=== PATIENT | male | born 1940 | race Caucasian/White ===

== ENCOUNTER → 2017-08-26 | Outpatient (CLI) | payer OTHER | LOC: BMCIMAGING 14:46 | PROVIDERS: ATTEND Internal Medicine | DX: R05 Cough (principal); M48.10 Ankylosing hyperostosis [Forestier], site unspecified ==

== ENCOUNTER → 2017-08-27 | Outpatient (CLI) | payer OTHER | LOC: BMCIMAGING 14:36 | PROVIDERS: ATTEND Internal Medicine | DX: Z13.83 Encounter for screening for respiratory disorder NEC (principal) ==

== ENCOUNTER 2017-09-24 14:42 | Inpatient (IN) | payer OTHER ==
--- NOTE | 2017-09-24 15:03 | EDPHY ---
H & P Stated Complaint: CP, SOB, weak, lightheaded, elevated BP Time Seen by Provider: 09/24/17 15:03 - Personal History Current Tetanus/Diphtheria Vaccine: Yes Current Tetanus Diphtheria and Acellular Pertussis (TDAP): Yes - Medical/Surgical History Hx Asthma: No Hx Chronic Respiratory Disease: No Hx Diabetes: No Hx Cardiac Disease: No Hx Renal Disease: Yes Hx Cirrhosis: No Hx Alcoholism: No Hx HIV/AIDS: No Hx Splenectomy or Spleen Trauma: No Other PMH: left kidney nephrectomy; wears oxygen at night, CVA, HTN, BPH, kidney stones, numerous surgeries, colon CA - Social History Smoking Status: Former smoker Constitutional: Initial Vital Signs Temperature (C) 36.6 C 09/24/17 14:44 Heart Rate 88 09/24/17 14:44 Respiratory Rate 16 09/24/17 14:44 Blood Pressure 154/95 H 09/24/17 14:44 O2 Sat (%) 95 09/24/17 14:44 O2 Delivery Mode Room Air Allergies/Adverse Reactions: iodine [Iodine] Allergy (Severe, Verified 03/28/10 01:32) Anaphylaxis IVP dye Allergy (Uncoded 01/20/14 19:12) Home Medications: Medication Instructions Recorded Docusate Sodium [Colace 100 MG (*)] 100 mg PO DAILY 03/27/10 Allopurinol [Allopurinol 100 MG 100 mg PO DAILY 01/20/14 (*)] Atorvastatin Calcium [Lipitor 80 80 mg PO DAILY 01/20/14 mg] Doxazosin Mesylate [Cardura] 2 mg PO DAILY 01/20/14 Dutasteride [Avodart 0.5 MG (*)] 0.5 mg PO DAILY 01/20/14 Latanoprost 0.005% [Xalatan 0.005% 1 drops LEFTEYE HS 01/20/14 (*)] Losartan Potassium [Cozaar 25 mg 25 mg PO DAILY 01/20/14 (*)] Tamsulosin HCl [Flomax 0.4 MG (*)] 0.4 mg PO DAILY 01/20/14 Eliquis 09/24/17 Medical Decision Making - Diagnostics Imaging Results: Imaging Impressions Chest X-Ray 09/24/17 15:16 Impression: Chronic bronchitis. No acute change. Imaging: I viewed and interpreted images myself ED Course/Re-evaluation: CHIEF COMPLAINT: Chest pain, dizziness, fatigued HISTORY OF PRESENT ILLNESS: The patient is an anticoagulated (Eliquis) 76 y/o male with a history of a CVA, hypertension, and colon cancer complaining of chest pain, dizziness, and fatigue. While living in the [facility] this winter the patient had low blood pressure. He returned to [place] 1 month ago and subsequently developed more fatigue and high blood pressure. He also started to develop shortness of breath and chest pressure while exerting himself. Around this time he was also diagnosed with bronchitis. Last night his symptoms worsened and he had a blood pressure of 195/111. Due to these symptoms he was advised to present to the emergency department. When he was diagnosed with a CVA, there was an unknown etiology and his carotid arteries were clear. Last year he did travel to [place] and had some respiratory symptoms. Denies headache, numbness, paresthesias, abdominal pain, urinary or bowel complaints, fever. REVIEW OF SYSTEMS: A 10 point review of systems was performed and is negative with the exception of the elements mentioned in the history of present illness. PHYSICAL EXAM: HR, BP, O2 Sat, RR. Temp noted General Appearance: Obese, alert, well hydrated, appropriate, and non-toxic appearing. Head: Atraumatic without scalp tenderness or obvious injury Eyes: Pupils equal, round, reactive to light and accommodation, EOMI, no trauma , no injection. Ears: Clear bilaterally, no perforation, normal landmarks Nose: Atraumatic, no rhinorrhea, clear. Throat: There is no erythema or exudates, no lesions, normal tonsils, mucus membranes moist. Neck: Supple, 2+ carotid upstroke, nontender, no lymphadenopathy. Respiratory: No retractions, no distress, no wheezes, and no accessory muscle use. Lungs are clear to auscultation bilaterally. Cardiovascular: Regular rate and rhythm, no murmurs, rubs, or gallops. Bilateral carotid, radial, dorsalis pedis, and posterior tibial pulses intact. Good capillary refill all extremities. Gastrointestinal: Abdomen is soft, nontender, non-distended, no masses, no rebound, no guarding, no peritoneal signs. Musculoskeletal: Normal active ROM of all extremities, atraumatic. Neurological: Alert, appropriate, and interactive. Non-focal neuro. Skin: No rashes, good turgor, no nodules on palpation. Past medical history: CVA, hypertension, kidney stones, colon cancer, wears oxygen at night, Past surgical history: Left kidney nephrectomy, numerous surgeries Family history: Denies Social history: at bedside, lives in [place] and the [facility], retired, followed by Dr. Rajan DIAGNOSTICS/PROCEDURES/CRITICAL CARE TIME: EKG: The 12 lead EKG was interpreted by myself as sinus rhythm with a rate of 80 , Q waves present inferiorly, probable old inferior infarct. See hard copy and/ or "tracemaster" electronic copy for interpretation. Chest x-ray: No acute findings. DIFFERENTIAL DIAGNOSIS: The differential diagnosis for the patient's chest pain included but was not limited to myocardial ischemia, pulmonary embolus, chest wall pain, pleural inflammation, and pulmonary infectious causes. MEDICAL DECISION MAKING: The patient is an anticoagulated (Eliquis) 76 y/o male with a history of a CVA, hypertension, and colon cancer presenting with exertional chest pain, dizziness , and fatigue. His physical exam is normal. Labs, EKG, chest x-ray ordered; 324mg PO Aspirin given. 1509: I reviewed patient's EKG as sinus rhythm with a rate of 80, Q waves present inferiorly. 1536: Patient's troponin is 0.02 1550: Patient's labs and imaging findings are normal. He will need to be admitted based on his history of symptoms. 1554: Reassessed patient and discussed laboratory findings. He is still having intermittent episodes of chest pain while lying down. He is comfortable with plan for admission. 1555: Consulted with Dr. Quinn, composition floor layer, regarding this patient. Dr. Quinn and Dr. Omalley agree to follow this patient during his admission. 1558: Consulted with hospitalist service, Dr. Morel agrees to accept this patient for further observation. 1630: Patient has no acute findings on his chest x-ray. - Data Points Laboratory Results: Laboratory Results 09/24/17 15:20 09/24/17 15:20 09/24/17 09/24/17 09/24/17 15:26 15:20 15:20 WBC RBC Hgb Hct MCV MCH MCHC RDW Plt Count MPV Neut % (Auto) Lymph % (Auto) [place] % (Auto) Eos % (Auto) Baso % (Auto) Nucleat RBC Rel Count Absolute Neuts (auto) Absolute Lymphs (auto) Absolute Monos (auto) Absolute Eos (auto) Absolute Basos (auto) Absolute Nucleated RBC Immature Gran % Immature Gran # D-Dimer 0.32 ug/mLFEU ug/mLFEU (0.00-0.50) Sodium 143 mEq/L mEq/L (135-145) Potassium 4.3 mEq/L mEq/L (3.3-5.0) Chloride 105 mEq/L mEq/L (97-110) Carbon Dioxide 26 mEq/l mEq/l (22-31) Anion Gap 12 mEq/L mEq/L (8-16) BUN 23 mg/dL mg/dL (7-23) Creatinine 1.5 mg/dL H mg/dL (0.7-1.3) Estimated GFR 46 Glucose 117 mg/dL H mg/dL (70-100) Calcium 9.7 mg/dL mg/dL (8.5-10.4) Total Bilirubin 0.8 mg/dL mg/dL (0.1-1.4) Conjugated Bilirubin 0.4 mg/dL mg/dL (0.0-0.5) Unconjugated Bilirubin 0.4 mg/dL mg/dL (0.0-1.1) AST 22 IU/L IU/L (17-59) ALT 35 IU/L IU/L (21-72) Alkaline Phosphatase 97 IU/L IU/L (38-126) POC Troponin I 0.02 ng/mL ng/mL (0.00-0.08) Troponin I 0.017 ng/mL ng/mL (0.000-0.034) Total Protein 6.4 g/dL g/dL (6.3-8.2) Albumin 3.6 g/dL g/dL (3.5-5.0) 09/24/17 15:20 WBC 7.53 10^3/uL 10^3/uL (3.80-9.50) RBC 5.49 10^6/uL 10^6/uL (4.40-6.38) Hgb 16.2 g/dL g/dL (13.7-17.5) Hct 48.4 % % (40.0-51.0) MCV 88.2 fL fL (81.5-99.8) MCH 29.5 pg pg (27.9-34.1) MCHC 33.5 g/dL g/dL (32.4-36.7) RDW 14.0 % % (11.5-15.2) Plt Count 197 10^3/uL 10^3/uL (150-400) MPV 10.8 fL fL (8.7-11.7) Neut % (Auto) 73.0 % % (39.3-74.2) Lymph % (Auto) 15.7 % % (15.0-45.0) [place] % (Auto) 7.3 % % (4.5-13.0) Eos % (Auto) 2.8 % % (0.6-7.6) Baso % (Auto) 0.5 % % (0.3-1.7) Nucleat RBC Rel Count 0.0 % % (0.0-0.2) Absolute Neuts (auto) 5.50 10^3/uL 10^3/uL (1.70-6.50) Absolute Lymphs (auto) 1.18 10^3/uL 10^3/uL (1.00-3.00) Absolute Monos (auto) 0.55 10^3/uL 10^3/uL (0.30-0.80) Absolute Eos (auto) 0.21 10^3/uL 10^3/uL (0.03-0.40) Absolute Basos (auto) 0.04 10^3/uL 10^3/uL (0.02-0.10) Absolute Nucleated RBC 0.00 10^3/uL 10^3/uL (0-0.01) Immature Gran % 0.7 % % (0.0-1.1) Immature Gran # 0.05 10^3/uL 10^3/uL (0.00-0.10) D-Dimer Sodium Potassium Chloride Carbon Dioxide Anion Gap BUN Creatinine Estimated GFR Glucose Calcium Total Bilirubin Conjugated Bilirubin Unconjugated Bilirubin AST ALT Alkaline Phosphatase POC Troponin I Troponin I Total Protein Albumin Medications Given: Discontinued Medications Aspirin (Aspirin) 324 mg PO EDNOW ONE Stop: 09/24/17 15:16 Last Admin: 09/24/17 15:43 Dose: 324 mg Point of Care Test Results: Chemistry 09/24/17 15:26 POC Troponin I 0.02 ng/mL ng/mL (0.00-0.08) Departure - Departure Disposition: [facility] Inpatient Acute Clinical Impression: Shortness of breath, Acute coronary syndrome Chest pain Qualifiers: Chest pain type: chest pain on breathing Qualified Code(s): R07.1 - Chest pain on breathing Fatigue Qualifiers: Fatigue type: other Qualified Code(s): R53.83 - Other fatigue Condition: Fair Referrals: Melani Feliz MD [Primary Care Provider] - As per Instructions Report Scribed for: Ward Somers Report Scribed by: Shirley Simon Date of Report: 09/24/17 Time of Report: 15:04
--- NOTE | 2017-09-24 15:11 | CPEKG ---
Heart Rate: 80 RR Interval: 750 P-R Interval: 196 QRSD Interval: 68 QT Interval: 352 QTC Interval: 406 P [place]: 27 QRS [place]: -29 T Wave [place]: 41 EKG Severity - ABNORMAL ECG - EKG Impression: SINUS RHYTHM EKG Impression: PROBABLE INFERIOR INFARCT, OLD Electronically Signed By: Mario Dumont 25-Sep-2017 06:52:09
[2017-09-24] MEDS ORDERED: ASPIRIN 81 MG CHEWABLE TAB PO ONE (15:15)
[2017-09-24 15:30] LABS: PLATELET COUNT 197 10^3/uL (150-400)
[2017-09-24] MEDS ORDERED: ONDANSETRON 4 MG/2 ML VIAL IVP PRN (17:12)
[2017-09-24] MEDS ORDERED: ACETAMINOPHEN 325 MG TAB PO PRN (17:12)
[2017-09-24] MEDS ORDERED: ONDANSETRON DISINTEGRATING 4 MG TAB PO PRN (17:12)
[2017-09-24] MEDS ORDERED: NON-FORMULARY NEW DRUG (Zolpidem Tartrate [Ambien Cr 12.5 Mg] 12.5 MG) PO PRN (17:15)
--- NOTE | 2017-09-24 17:18 | ECHO ---
[email or web address] [address] [address] Main: [phone] Fax: Transthoracic Echocardiogram Name: SP GARCIA MR#: [id number] Study Date: 09/24/2017 Study Time: 04:56 PM Date of : 1940 Age: 77 year(s) Height: 170.2 cm (67 in.) Weight: 95.26 kg (210 lb.) BSA: 2.06 m2 Gender: Male Examination: Echo Indication: Chest Pain, Shortness of breath Image Quality: Adequate Contrast: Requested by: Ray Nguyen BP: / Heart Rate: Rhythm: Indication: Chest Pain, Shortness of breath Procedure Staff Graphic Design Specialist: Sallie Osorio [facility] Reading Physician: Ray Nguyen MD Requesting Provider: Conclusions: Normal size left ventricle. Borderline concentric LV hypertrophy. Normal global systolic LV function. EF is 56 %. The mitral valve is normal in appearance and function. Mild mitral valve regurgitation is present. The aortic valve is tri-leaflet. Aortic sclerosis is present. Mild to moderate aortic valve regurgitation. No aortic valve stenosis is present. Normal size ascending aorta measuring 3.3 cm. No old studies for comparison. Measurements: Chambers Valvular Assessment AV/MV Valvular Assessment TV/PV Normal Normal Normal Name Value Range Name Value Range Name Value Range Ao Miri (2D): 3.5 cm (1.4 cm-2.6 AV Vmax: 1.17 m/s (1 m/s-1.7 TR Vmax: 1.79 mm/s ( - ) cm) m/s) TR PGmax: 13 mmHg ( - ) IVSd (2D): 1.3 cm (0.6 cm-1.1 AV maxP mmHg ( - ) syst. PAP: 18 mmHg ( - ) cm) AV meanP mmHg ( - ) PV Vmax: 1.11 m/s (0.6 m/s-0.9 LVDd (2D): 4.0 cm (4.2 cm-5.9 LVOT Vmax: 0.89 m/s (0.7 m/s-1.1 m/s) cm) m/s) PV PGmax: 5 mmHg ( - ) LVDs (2D): 2.8 cm (2.1 cm-4 SHANE (Vmax): 2.4 cm2 ( - ) cm) SHANE (VTI): 2.3 cm ( - ) LVPWd (2D): 1.2 cm (0.6 cm-1 MV E Vmax: 0.55 m/s ( - ) cm) MV A Vmax: 0.83 m/s ( - ) LVOTd 2.0 cm 2.0 cm mm MV E/A: 0.66 ( - ) LVEF (BP): 56 % (>=55 %) MV PHT: 0.065 s ( - ) RVDd(2D): 3.5 cm (1.9 cm-3.8 cmmm) MVA (PHT): 3.4 s ( - ) Patient: SP GARCIA Study Date: 09/24/2017 Page 1 of 2 04:56 PM Continued Measurements: Chambers Valvular Assessment AV/MV Valvular Assessment TV/PV Name Value Name Value Name Value LADs: 4.1 cm MV DecTime: 215 m/s CVP (est.): 5 mmHg LADs Lon.2 cm MV E/E' Septal: 12.00 LA Area: 15.9 cm2 MV E/E' Lateral: 6.70 LA Volume: 36 ml LA Volume Index: 17.5 ml/m2 RA Area: 15.0 cm2 Additional Vessels Name Value Ao Ascendin.3 cm Inferior Vena Cava: 1.6 cm Findings: Left Ventricle: Normal size left ventricle. Borderline concentric LV hypertrophy. Normal global systolic LV function. EF is 56 %. No regional wall motion abnormality. Diastolic dysfunction is present. . Right Ventricle: Normal size right ventricle. Normal RV function. Left Atrium: The left atrium is normal in size. Right Atrium: The right atrium is normal in size. Mitral Valve: The mitral valve is normal in appearance and function. Mild mitral valve regurgitation is present. No mitral stenosis is present. Aortic Valve: The aortic valve is tri-leaflet. Aortic sclerosis is present. Mild to moderate aortic valve regurgitation. No aortic valve stenosis is present. Tricuspid Valve: The tricuspid valve is normal in appearance and function. Mild tricuspid regurgitation is present. The pulmonary artery pressure is normal. Right ventricular systolic pressure measures 18mmHg. Pulmonic Valve: The pulmonic valve is normal in appearance and function. There is no pulmonic regurgitation seen. Aorta: The aorta is normal. Normal size aortic root measuring 3.5 cm. Normal size ascending aorta measuring 3.3 cm. IVC: The IVC is normal sized. Pericardium: No pericardial effusion. No pleural effusion. Exam Comments: Technically difficult due to patient body habitus, some foreshortening. (No Signature Object) Patient: SP GARCIA Study Date: 09/24/2017 Page 2 of 2 04:56 PM [id number]
[2017-09-24] MEDS: METOPROLOL TARTRATE 25 MG TAB PO SCH ×2 (17:42→20:20)
[2017-09-24] MEDS ORDERED: TAMSULOSIN HCL 0.4 MG CAP PO SCH (17:45)
[2017-09-24] MEDS ORDERED: MAG HYDROX/AL HYDROX/SIMETH 30 ML UDCUP PO ONE (17:46)
[2017-09-24] MEDS ORDERED: HYOSCYAMINE SULFATE 0.125 MG TAB PO ONE (17:46)
[2017-09-24] MEDS ORDERED: LIDOCAINE 2% VISCOUS 15 ML UDCUP PO ONE (17:46)
[2017-09-24] MEDS ORDERED: LABETALOL HCL 5 MG/ML 20 ML MDV IV ONE (18:00)
[2017-09-24] MEDS: PANTOPRAZOLE SODIUM 40 MG TAB PO SCH (18:20)
--- NOTE | 2017-09-24 18:28 | GHP ---
[f rep st] HISTORY AND PHYSICAL DATE OF ADMISSION: 09/24/2017 CHIEF COMPLAINT: Chest pain. HISTORY OF PRESENT ILLNESS: The patient is a 77-year-old male with a history of CVA, colon cancer, hypertension, and hyperlipidemia, who presents to the emergency department with chest pain. He states the onset of his pain was yesterday. He noticed a few episodes of slight chest pressure. Last night, this became more severe. This is in his left substernal region. There is no radiation of the pain. He denies associated nausea or diaphoresis. He does feel a bit short of breath when the pain occurs. He also endorses increased dyspnea on exertion. He otherwise denies cough, fevers or chills. Upon arrival to the cardiac telemetry unit, he suddenly developed some nausea, though this was a brief symptom and dissipated quickly over several seconds. He has not previously had nausea or vomiting. When the nausea came on, he felt that it was epigastric discomfort. In the emergency department, his EKG shows some Q waves, but is otherwise nonischemic. He has a negative troponin. He is mildly hypertensive. Cardiology was consulted. He was admitted to the hospital for further management. PAST MEDICAL/SURGICAL HISTORY: 1. Previous stroke. 2. Chronic anticoagulation secondary to above. 3. Colon cancer diagnosed in 2003, status post colectomy. 4. Hydrocele. 5. Hypertension. 6. Hyperlipidemia. 7. Nephrectomy secondary to trauma. 8. History of nephrolithiasis. 9. Chronic kidney disease. 10. Multiple abdominal surgeries for ureteral strictures. MEDICATIONS: Please see med rec for completed outpatient medication list. ALLERGIES: Iodine, which causes anaphylaxis; and contrast dye, which also causes anaphylaxis. FAMILY HISTORY: His brother of esophageal cancer. His father of stomach cancer. His mother had hypertension and hyperlipidemia and of coronary artery disease. SOCIAL HISTORY: The patient is . His is present at the bedside. He has a tobacco history, but quit over 30 years ago. He reports rare alcohol use. REVIEW OF SYSTEMS: 10-point review of systems is reviewed and negative except as per HPI. OBJECTIVE: VITAL SIGNS: Temperature is 36.3. Blood pressure 144/95. However , on arrival to floor, it is 180/128. Heart rate 70. Respiratory rate 14. He is 97% on room air. GENERAL: Patient is awake, alert, and oriented in no acute distress. HEENT: Head is atraumatic, normocephalic. Pupils equal, round, and reactive to light. Extraocular movements intact. Oropharynx clear. Mucous membranes are moist. NECK: Supple. There is no JVD. HEART: Regular rate and rhythm. LUNGS: Clear to auscultation bilaterally with decreased breath sounds. ABDOMEN: Soft, obese, nondistended, with epigastric tenderness to palpation. No rebound, rigidity or guarding. Normoactive bowel sounds are present. EXTREMITIES: Trace bilateral lower extremity edema. NEUROLOGIC: Grossly nonfocal. LABORATORY DATA: CBC is completely normal. D-dimer is negative at 0.32. Complete metabolic panel shows normal electrolytes. Creatinine is at his baseline of 1.5, blood sugar 117. LFTs are normal. Initial troponin is negative. EKG shows normal sinus rhythm. Q waves are present in the inferior leads. There are otherwise no ST-segment or T-wave changes suggestive of acute ischemia. Chest x-ray is personally reviewed and interpreted and shows evidence of chronic bronchitis changes, otherwise no acute cardiopulmonary process. Echocardiogram shows normal ejection fraction of 56% with mild mitral regurgitation and mild to moderate aortic regurgitation. No wall motion abnormalities are noted. Diastolic dysfunction is present. ASSESSMENT AND PLAN: The patient is a 77-year-old male with history of prior stroke, hypertension, hyperlipidemia, who presents to the emergency department with chest pain. 1. Chest pain. He has a HEART score of 6, which supports admission for further workup and inpatient risk stratification. His initial troponin is negative. His EKG shows Q waves in inferior leads. There is no wall motion abnormality on his echocardiogram. Cardiology has been consulted, is actually visiting the patient at this time. He has received a full-dose aspirin. He will be continued on his Eliquis unless directed by Cardiology to hold if angiogram is indicated. Will continue his statin and check a lipid panel in the morning. We will also add beta radha. Further recommendations for inpatient risk stratification per Cardiology, likely nuclear stress test in am if troponins remain negative. 2. Hypertensive urgency. Upon arrival to the floor, he had a blood pressure of 180/128, with associated nausea. He will receive IV labetalol now. Will add oral metoprolol as well as continue his home losartan. Defer nitrate therapy given that he takes 2 alpha blockers at home, both of which are held for now 3. Hyperlipidemia. Continue statin. 4. Nausea, vomiting. It is unclear if this was related to his hypertensive episode or if it may be suggestive of a gastrointestinal source of his pain. We will try a gastrointestinal cocktail to see if this is helpful and also start proton pump inhibitor therapy. 5. History of cerebrovascular accident. He has no neurologic deficits. Will continue his Eliquis unless it is requested to be held by Cardiology for possible interventions. 6. Chronic kidney disease. His creatinine is at baseline at 1.5. 7. History of colon cancer. 8. Code status: Patient is a full code. 9. Deep venous thrombosis prophylaxis. Patient is anticoagulated on Eliquis. DISPOSITION: Patient admitted to observation status. If the above workup is reassuring, he may be a candidate for discharge home tomorrow. Otherwise, will change to inpatient if further workup is indicated. /[id number]/MODL MTDD
[2017-09-24] MEDS ORDERED: LABETALOL HCL 5 MG/ML 20 ML MDV IVP PRN (20:00)
[2017-09-24] MEDS: LATANOPROST 0.005% 2.5 ML OPHT DROPS LEFTEYE SCH (20:19)
[2017-09-24] MEDS: APIXABAN 5 MG TAB PO SCH (20:20)
--- NOTE | 2017-09-25 08:54 | PDCARCONS ---
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 Discomfort began about one day prior to ER. Left sided location. No radiation of the discomfort into shoulder, neck, or jaw. No PND or orthopnea. No fevers or chills. No symptoms similar in recent past, but in remote past (>5 years ago), patient feels that there were similar symptoms, and he was seen by [facility] in April 2014. Stress testing in 2013 without ischaemia or infarction patterns noted. Normal LVEF by echo (2013 ) and MPI (2013). Blood pressure elevation was also a concern to the patient about four to five days prior to admission with pressures that were noted to be >150 mm Hg. Patient is followed by nephrology on regular basis (Q6 months) for chronic renal insufficiency history. Patient spends 4-6 months in [facility] for "winter" and had no issues with blood pressure while at that location. At present, the patient is feeling very well. No cardiovascular complaints. Mild chest discomfort was noted while talking, but patient attributed this to musculoskeletal, and the way that he was sitting in bed, having conversation today. Remainder of the 12 point review of systems was unremarkable History Information - Allergies/Home Medication List Allergies/Adverse Reactions: iodine [Iodine] Allergy (Severe, Verified 03/28/10 01:32) Anaphylaxis IVP dye Allergy (Uncoded 01/20/14 19:12) Home Medications: Docusate Sodium [Colace 100 MG (*)] 100 mg PO DAILY 03/27/10 [Last Taken ] Allopurinol [Allopurinol 100 MG (*)] 100 mg PO DAILY 01/20/14 [Last Taken ] Atorvastatin Calcium [Lipitor 80 mg] 80 mg PO DAILY 01/20/14 [Last Taken ] Doxazosin Mesylate [Cardura] 2 mg PO DAILY 01/20/14 [Last Taken 01/20/14] Latanoprost 0.005% [Xalatan 0.005% (*)] 1 drops LEFTEYE HS 01/20/14 [Last Taken 01/19/14] Tamsulosin HCl [Flomax 0.4 MG (*)] 0.4 mg PO DAILY 01/20/14 [Last Taken 01/20/14 ] Apixaban [Eliquis] 5 mg PO BID 09/24/17 [Last Taken Unknown] Finasteride [Proscar 5 MG (*)] 5 mg PO DAILY 09/24/17 [Last Taken Unknown] Losartan Potassium [Cozaar 50 mg (*)] 50 mg PO DAILY 09/24/17 [Last Taken Unknown] ZOLPIDEM TARTRATE [Ambien CR 12.5 mg] 12.5 mg PO HS PRN 09/24/17 [Last Taken Unknown] I have personally reviewed and updated: family history, medical history, social history, surgical history Past Medical History: - Past Medical History atrial fibrillation, cancer, CVA, ESRD, hypertension, hyperlipidemia - Surgical History Reports: cancer surgery, colectomy Additional surgical history: numerous surgeries - Family History Positive for: hypertension, stroke - Social History Smoking Status: Former smoker Alcohol Use: Rarely Drug Use: None Cardiac History - Cardiac History Cardiac Risk Factors: hypertension (>140/90), lipidemia, age > 65, male Timing/Duration: Days Severity: moderate Severity Scale: 4 Location: substernal Activities at Onset: none Modifying Factors: improves with: rest Associated Symptoms: chest pain, nausea/vomiting OLAYINKA Risk Evaluation age greater or equal to 65: yes greater or equal to 3 CAD risk factors: yes known CAD(stenosis greater or eqaul to 50%): no ASA use in past 7 days: no severe angina(greater or equal to 2 episodes in 24hrs): no EKG ST changes greater or equal to 0.5mm: no positive cardiac marker: no Total Score: 2 OLAYINKA Score: 8.3% risk Physical Exam Physical Exam: Temp Pulse Resp BP Pulse Ox 36.6 C 66 15 132/69 H 97 09/25/17 03:33 09/25/17 08:00 09/25/17 08:00 09/25/17 08:00 09/25/17 08:00 O2 (L/minute) 3 Constitutional: no apparent distress, appears nourished, not in pain Eyes: PERRL Ears, Nose, Mouth, Throat: moist mucous membranes, hearing normal, ears appear normal Cardiovascular: regular rate and rhythym, no murmur, rub, or gallop, pulses symmetric bilaterally, No systolic murmur, No diastolic murmur, No JVD Peripheral Pulses: 2+: dorsalis-pedis (R), dorsalis-pedis (L) Respiratory: no respiratory distress, no rales or rhonchi, clear to auscultation Gastrointestinal: normoactive bowel sounds Skin: warm, No rash Musculoskeletal: full muscle strength, normal joint ROM Neurologic: AAOx3, sensation intact bilaterally, CN II-XII Intact Psychiatric: interacting appropriately, not anxious, not encephalopathic Lab and Imaging 09/24/17 15:20 09/24/17 15:20 WBC 7.53 10^3/uL (3.80-9.50) 09/24/17 15:20 RBC 5.49 10^6/uL (4.40-6.38) 09/24/17 15:20 Hgb 16.2 g/dL (13.7-17.5) 09/24/17 15:20 Hct 48.4 % (40.0-51.0) 09/24/17 15:20 MCV 88.2 fL (81.5-99.8) 09/24/17 15:20 MCH 29.5 pg (27.9-34.1) 09/24/17 15:20 MCHC 33.5 g/dL (32.4-36.7) 09/24/17 15:20 RDW 14.0 % (11.5-15.2) 09/24/17 15:20 Plt Count 197 10^3/uL (150-400) 09/24/17 15:20 MPV 10.8 fL (8.7-11.7) 09/24/17 15:20 Neut % (Auto) 73.0 % (39.3-74.2) 09/24/17 15:20 Lymph % (Auto) 15.7 % (15.0-45.0) 09/24/17 15:20 Waller % (Auto) 7.3 % (4.5-13.0) 09/24/17 15:20 Eos % (Auto) 2.8 % (0.6-7.6) 09/24/17 15:20 Baso % (Auto) 0.5 % (0.3-1.7) 09/24/17 15:20 Nucleat RBC Rel Count 0.0 % (0.0-0.2) 09/24/17 15:20 Absolute Neuts (auto) 5.50 10^3/uL (1.70-6.50) 09/24/17 15:20 Absolute Lymphs (auto) 1.18 10^3/uL (1.00-3.00) 09/24/17 15:20 Absolute Monos (auto) 0.55 10^3/uL (0.30-0.80) 09/24/17 15:20 Absolute Eos (auto) 0.21 10^3/uL (0.03-0.40) 09/24/17 15:20 Absolute Basos (auto) 0.04 10^3/uL (0.02-0.10) 09/24/17 15:20 Absolute Nucleated RBC 0.00 10^3/uL (0-0.01) 09/24/17 15:20 Immature Gran % 0.7 % (0.0-1.1) 09/24/17 15:20 Immature Gran # 0.05 10^3/uL (0.00-0.10) 09/24/17 15:20 D-Dimer 0.32 ug/mLFEU (0.00-0.50) 09/24/17 15:20 Sodium 143 mEq/L (135-145) 09/24/17 15:20 Potassium 4.3 mEq/L (3.3-5.0) 09/24/17 15:20 Chloride 105 mEq/L (97-110) 09/24/17 15:20 Carbon Dioxide 26 mEq/l (22-31) 09/24/17 15:20 Anion Gap 12 mEq/L (8-16) 09/24/17 15:20 BUN 23 mg/dL (7-23) 09/24/17 15:20 Creatinine 1.5 mg/dL (0.7-1.3) H 09/24/17 15:20 Estimated GFR 46 09/24/17 15:20 Glucose 117 mg/dL (70-100) H 09/24/17 15:20 Calcium 9.7 mg/dL (8.5-10.4) 09/24/17 15:20 Total Bilirubin 0.8 mg/dL (0.1-1.4) 09/24/17 15:20 Conjugated Bilirubin 0.4 mg/dL (0.0-0.5) 09/24/17 15:20 Unconjugated Bilirubin 0.4 mg/dL (0.0-1.1) 09/24/17 15:20 AST 22 IU/L (17-59) 09/24/17 15:20 ALT 35 IU/L (21-72) 09/24/17 15:20 Alkaline Phosphatase 97 IU/L (38-126) 09/24/17 15:20 POC Troponin I 0.02 ng/mL (0.00-0.08) 09/24/17 15:26 Troponin I 0.016 ng/mL (0.000-0.034) 09/25/17 03:30 Total Protein 6.4 g/dL (6.3-8.2) 09/24/17 15:20 Albumin 3.6 g/dL (3.5-5.0) 09/24/17 15:20 Triglycerides 315 mg/dL (40-150) H 09/25/17 03:30 Cholesterol 134 mg/dL (140-220) L 09/25/17 03:30 Cholesterol Risk Factr 0.6 (0.2-1.0) 09/25/17 03:30 LDL Cholesterol, Calc 34 mg/dL (80-100) L 09/25/17 03:30 LDL Risk Factor 0.5 (0.2-1.0) 09/25/17 03:30 VLDL Cholesterol 63 mg/dL (8-25) H 09/25/17 03:30 Non-HDL Cholesterol 97 mg/dL (90-129) 09/25/17 03:30 HDL Cholesterol 37 mg/dL (40-65) L 09/25/17 03:30 LDL/HDL Ratio 0.92 RATIO (1.00-3.64) L 09/25/17 03:30 Cholesterol/HDL Ratio 3.62 RATIO (1.00-4.97) 09/25/17 03:30 Visualized and Interpreted Chest x-ray results: Yes Chest X-ray Interpretation: no infiltrate Visualized and Interpreted EKG results: Yes EKG Interpretation: Positive for: normal sinsus rhythm, NS ST wave abnormalities EKG additional interpertation: possible old inferior myocardial infarction (Q waves noted to III and aVF) Telemetry: normal sinus rhythm Echocardiogram: not performed with this admission, but noted to have normal LVEF by echo/MPI in 2014. A/P Assessment: Patient is a 77 y/o male with numerous CV risk factors (renal insufficiency, HTN , HLP, age, sex) with complaints of chest discomfort. Renal insufficiency noted (Creatinine was 1.5). No cardiac biomarker elevation has been noted, and no dynamic ST/T wave changes noted on ECG. Ongoing Eliquis therapy for pAF/CVA history. Recommendations for non invasive CV risk stratification over invasive given lack of symptoms as well as IV contrast allergy in setting of renal insufficiency. Plan: Would perform Elizabet MPI today. Would continue antihypertensive therapy on Cozaar and Lopressor. Eliquis for CVA prophylaxis given CVA and pAF history should continue. Statins should continue with HLP, as well as annual assessment of cholesterol and LFTs. Further recommendations after CV testing completed. Would recommend follow up with nephrology to continue. Patient was in agreement with these plans.
[2017-09-25] MEDS ORDERED: ASPIRIN EC 81 MG TAB PO SCH (09:00)
[2017-09-25] MEDS ORDERED: DOXAZOSIN MESYLATE 1 MG TAB PO SCH (09:00)
[2017-09-25] MEDS ORDERED: NITROGLYCERIN 0.4 MG BTL SL PRN (11:21)
[2017-09-25] MEDS ORDERED: REGADENOSON 0.4 MG/5 ML SYR IVP ONE (11:34)
[2017-09-25] MEDS: APIXABAN 5 MG TAB PO SCH ×2 (11:40→20:20)
[2017-09-25] MEDS: DOCUSATE SODIUM 100 MG CAP PO SCH (11:40)
[2017-09-25] MEDS: ALLOPURINOL 100 MG TAB PO SCH (11:40)
[2017-09-25] MEDS: FINASTERIDE 5 MG TAB PO SCH (11:40)
[2017-09-25] MEDS: ATORVASTATIN CALCIUM 40 MG TAB PO SCH (11:40)
[2017-09-25] MEDS: PANTOPRAZOLE SODIUM 40 MG TAB PO SCH (11:41)
[2017-09-25] MEDS: LOSARTAN POTASSIUM 50 MG TAB PO SCH (11:41)
[2017-09-25] MEDS: METOPROLOL TARTRATE 25 MG TAB PO SCH ×2 (11:41→20:20)
--- NOTE | 2017-09-25 13:38 | CPR ---
[f rep st] NONINVASIVE CARDIAC PROCEDURE REPORT PROCEDURE: Lexiscan injection and Lexiscan MPI study. SUPERVISING NETWORK PROGRAM MANAGER: Micah Carbajal MD INDICATION FOR PROCEDURE: Episodes of chest pressure, multiple cardiac risk factors, evaluation for cardiac ischemia. Patient is unable to run on treadmill. PRE: After obtaining informed consent and ensuring patient's n.p.o. status of caffeine for greater t mata 12 hours, patient was placed on electrocardiogram. Initial EKG shows sinus rhythm , normal axis, no significant ST or T-wave abnormalities suggesting of ischemia. He denies any chest pain, shortne ss of breath, or symptoms suggesting of ischemia. Initial blood pressure 131/90, saturation 97% on r oom air. INJECTION: Patient was given Lexiscan slow IV push followed by nuclear isotope. Within 1 minute of injection, patient did report some mild chest discomfort with flushing and shortness of breath. Hear t rate did increase up to 103 BPM. Blood pressure elevated up at 155/85, no significant EKG changes except occasional premature ventricular contraction post injection. Within 2 minutes, the patient wa s given caffeinated beverage, and within 5 minutes patient reporting all symptoms subsided. Heart ra te did decrease back to 80 beats per minute, final blood pressure was 154/93, saturation 97%. IMPRESSION: A 77-year-old male admitted to the hospital for chest pressure, negative troponin x2, ec hocardiogram showing no wall motion abnormalities, being evaluated for cardiac ischemia. Did report mild chest pressure, shortness of breath and flushing sensation with Lexiscan injection with elevated heart rate and blood pressure post injection with occasional premature ventricular contraction, no s ignificant ST changes post injection, within 5 minutes after caffeinated beverage, all symptoms subsi ded. Vital signs were stable. Patient will be taken down to Nuclear Medicine for post-stress eliezer gGeovanna /[id number]/MODL
--- NOTE | 2017-09-25 15:17 | ASMTCMCOM ---
CM Note CM Note Notes: Disscussed case in rounds this AM. Pt admitted w/chest pain/ACS. Pt to have stress test today, may possibly dc after that if med stable. No CM needs upon dc anticipated. Date Signed: 09/25/2017 03:17 PM Electronically Signed By:Sierra Wilson RN
[2017-09-25] MEDS ORDERED: CALCIUM CARBONATE 500 MG CHEWABLE TAB PO PRN (16:59)
[2017-09-25] MEDS ORDERED: NITROGLYCERIN/DEXTROSE 250 ML IV SCH (17:00)
--- NOTE | 2017-09-25 18:53 | HOSPPROG ---
Hospitalist Progress Note Assessment/Plan: Assessment: 77-year-old male presents with acute chest pain in the setting of chronic kidney disease stage 3, paroxysmal atrial fibrillation Plan: 1. Chest pain. Acute, new problem this provider, further workup indicated. Potential etiology includes acute coronary syndrome with abnormal stress portion of his nuclear stress test, EKG with Q-wave in 2 and 3, may correspond to inferolateral area of defect -D-dimer negative -echocardiogram demonstrating left ventricular hypertrophy, no focal wall motion abnormalities, mild mitral regurgitation, mild to moderate aortic insufficiency -chest x-ray demonstrating no focal airspace disease, personally interpreted, no evidence of infection -given the patient's high risk for acute coronary syndrome, I recommend to the patient that he utilize sublingual nitroglycerin for any ongoing chest pain and then adjust to nitroglycerin drip if pain requires further control -the patient would currently like to hold off on nitroglycerin and morphine, but he is clear that these are options -discussed with Dr. Dipak Hill, he reports that resting portion will be performed tomorrow a.m. -currently receiving aspirin, statin, anticoagulation, beta-radha -NPO after midnight, possible catheterization tomorrow depending on final stress test result -repeating troponin now and again in a.m. 2. Paroxysmal atrial fibrillation. Continue beta-radha and anticoagulation 3. Chronic kidney disease stage 3. Baseline creatinine around 1.5, continue to monitor, risk stratifying with nuclear images prior to catheterization given patient's risk for worsening renal function 4. Hypertension. Chronic, continue ARB, continue beta-radha Diet. Cardiac, NPO in a.m. Prophylaxis. High risk patient, Eliquis 5 twice daily Code. Full Disposition. Anticipated discharge is uncertain, upgraded to inpatient admission status given that his anticipated length stay is greater than 48 hr for reasonable medical necessity including possible acute coronary syndrome with abnormal stress portion of nuclear medicine test, requiring further diagnostic cardiovascular workup as well as potential catheterization in a.m. Subjective: Ongoing chest pain Objective: Vital Signs Temp Pulse Resp BP Pulse Ox 37.1 C 71 15 145/94 H 96 09/25/17 16:00 09/25/17 16:00 09/25/17 16:00 09/25/17 16:00 09/25/17 16:00 09/24/17 09/25/17 09/26/17 05:59 05:59 05:59 Intake Total 550 Balance 550 - Physical Exam Constitutional: no apparent distress, obese, uncomfortable, No not in pain ( Mild in chest) Cardiovascular: regular rate and rhythym, systolic murmur (1/6 at the sternum and apex), No irregularly irregular, No tachycardia, No edema Respiratory: no respiratory distress, no rales or rhonchi, clear to auscultation Gastrointestinal: normoactive bowel sounds, soft, non-tender abdomen, no palpable masses, No distension Skin: No rash (Over chest) Musculoskeletal: other (Mild tenderness over left anterior pectoralis muscle, no pain with rotation of left shoulder) Neurologic: AAOx3, sensation intact bilaterally, No weakness Psychiatric: interacting appropriately, not anxious, not encephalopathic, thought process linear ICD10 Worksheet Patient Problems: Problems Problem Status Onset Acute coronary syndrome Acute Chest pain Acute Fatigue Acute Shortness of breath Acute HTN (hypertension) Acute Hyperlipidemia Acute
[2017-09-25] MEDS: LATANOPROST 0.005% 2.5 ML OPHT DROPS LEFTEYE SCH (21:58)
--- NOTE | 2017-09-26 06:17 | PDMN ---
Medical Necessity Medical necessity: Change to IP, as of 09/25/17, per MD; los > 2mn for ongoing management of possible acute coronary syndrome w/abnormal stress test; admit for further workup/monitoring & potential cardiac cath; hx CKD, AFIB, HTN; per progress note & order 09/25/17
[2017-09-26] MEDS: LOSARTAN POTASSIUM 50 MG TAB PO SCH (09:58)
[2017-09-26] MEDS: DOCUSATE SODIUM 100 MG CAP PO SCH (09:58)
[2017-09-26] MEDS: APIXABAN 5 MG TAB PO SCH (09:58)
[2017-09-26] MEDS: DOXAZOSIN MESYLATE 4 MG TAB PO SCH (09:59)
[2017-09-26] MEDS: ASPIRIN EC 325 MG TAB PO SCH (09:59)
[2017-09-26] MEDS: METOPROLOL TARTRATE 25 MG TAB PO SCH ×2 (10:00→21:03)
[2017-09-26] MEDS: PANTOPRAZOLE SODIUM 40 MG TAB PO SCH (10:00)
[2017-09-26] MEDS: ALLOPURINOL 100 MG TAB PO SCH (10:01)
[2017-09-26] MEDS: FINASTERIDE 5 MG TAB PO SCH (10:01)
[2017-09-26] MEDS: ATORVASTATIN CALCIUM 40 MG TAB PO SCH (10:01)
--- NOTE | 2017-09-26 11:44 | PDCARPN ---
Cardiology Progress Note Chief Complaint: No cardiovascular complaints were voiced this morning. Chest pains were noted yesterday. Assessment/Plan: Assessment: 09-26-17 No cardiovascular complaints were voiced today. Stress testing (stress images) yesterday with abnormal perfusion, and rest images were obtained today. Preliminary read with inferior infarction pattern noted with periinfarct ischaemia noted. Given a lack of CV history, this is of concern. I did discuss with the patient today, given an abnormal finding on a patient without prior history, angiography would be indicated, especially given the symptoms being noted. No active cardiovascular symptoms were noted today. Anxiety levels were elevated post discussion about the stress testing and possible angiography (to be expected). 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 Discomfort began about one day prior to ER. Left sided location. No radiation of the discomfort into shoulder, neck, or jaw. No PND or orthopnea. No fevers or chills. No symptoms similar in recent past, but in remote past (>5 years ago), patient feels that there were similar symptoms, and he was seen by [facility] in April 2014. Stress testing in 2013 without ischaemia or infarction patterns noted. Normal LVEF by echo (2013 ) and MPI (2013). Blood pressure elevation was also a concern to the patient about four to five days prior to admission with pressures that were noted to be >150 mm Hg. Patient is followed by nephrology on regular basis (Q6 months) for chronic renal insufficiency history. Plan: (1) Would pursue angiography tomorrow - NPO after midnight (2) Iodine allergy (would premedicate) (3) Continue therapy on ASA, but hold further doses of Eliquis (4) Statins should continue for HLP (5) Maintain metoprolol and Cozaar for HTN control assistance (6) Further recommendations post angiography - risks and benefits have been discussed with patient and . Subjective: No cardiovascular complaints Reviewed/Discussed With: family, hospitalist Objective: Vital Signs (8 Hrs) Temp Pulse Resp BP Pulse Ox 09/26/17 10:32 70 170/112 H 09/26/17 08:00 36.9 C 68 15 139/82 H 93 09/26/17 03:59 36.7 C 69 16 140/79 H 99 Intake/Output (24 Hrs) 09/25/17 09/26/17 09/27/17 05:59 05:59 05:59 Intake Total 150 Balance 150 Intake: Oral (ml) 150 Result Diagrams: 09/24/17 15:20 09/24/17 15:20 Cardiac Labs: Cardiac Lab Results (72 Hrs) 09/26/17 09/25/17 03:30 18:25 Troponin I 0.021 0.016 Telemetry: sinus rhythm - Physical Exam Constitutional: WDWN, healthy appearing, no apparent distress, obese Eyes: PERRL, EOMI Ears, Nose, Mouth, Throat: moist mucous membranes Cardiovascular: regular rate and rhythm, no murmurs, pulses symmetric bilat, No systolic murmur, No diastolic murmur, No jugular vein distention Peripheral Pulses: 2+: dorsalis-pedis (R), dorsalis-pedis (L) Respiratory: clear to auscultate bilat, no crackles, no wheezes Gastrointestinal: normoactive bowel sounds Skin: no rashes, no edema Musculoskeletal: no muscular tenderness Neurologic: AAOx3, CN II-XII grossly intact Psychiatric: cooperative, interactive, following commands ICD10 Worksheet Patient Problems: Problems Problem Status Onset Acute coronary syndrome Acute Chest pain Acute Fatigue Acute Shortness of breath Acute HTN (hypertension) Acute Hyperlipidemia Acute
[2017-09-26] MEDS ORDERED: FAMOTIDINE 20 MG TAB PO ONE (11:46)
[2017-09-26] MEDS ORDERED: DIAZEPAM 5 MG TAB PO ONE (11:46)
[2017-09-26] MEDS ORDERED: diphenhydrAMINE 25 MG CAP PO ONE (11:46)
[2017-09-26] MEDS ORDERED: ACETAMINOPHEN 325 MG TAB PO PRN (11:46)
[2017-09-26] MEDS ORDERED: TEMAZEPAM 15 MG CAP PO PRN (11:46)
[2017-09-26] MEDS ORDERED: NS 1,000 ML IV SCH (12:00)
--- NOTE | 2017-09-26 14:19 | ASMTCMCOM ---
CM Note CM Note Notes: 09/26/2017 Case Management Note Discussed pt during rounds this morning. Pt Lucy [phone] present. Pt stress test was abnormal. Pt to have cath tomorrow. There are no PT or OT evals ordered at this time. Case Management d/c poc: to be determined. Case Management to follow. Date Signed: 09/26/2017 02:18 PM Electronically Signed By:Josephine Mcclain RN
--- NOTE | 2017-09-26 19:01 | HOSPPROG ---
Hospitalist Progress Note Assessment/Plan: Assessment: 77-year-old male presents with acute chest pain in the setting of chronic kidney disease stage 3, paroxysmal atrial fibrillation Plan: 1. Chest pain. Acute, suspect this is unstable angina w/ inferolateral area of defect on stress testing -D-dimer negative -echocardiogram demonstrating left ventricular hypertrophy, no focal wall motion abnormalities, mild mitral regurgitation, mild to moderate aortic insufficiency -given the patient's high risk for acute coronary syndrome, I recommend to the patient that he utilize sublingual nitroglycerin for any ongoing chest pain and then adjust to nitroglycerin drip if pain requires further control -currently receiving aspirin, statin, anticoagulation, beta-radha, on anti- coagulation -d/w Dr. Garrett, he recommends NPO after midnight, cath in AM -counseled patient extensively regarding plan above, the patient would currently like to hold off on nitroglycerin and morphine, but he is clear that these are options 2. Paroxysmal atrial fibrillation. Continue beta-radha and anticoagulation 3. Chronic kidney disease stage 3. Baseline creatinine around 1.5, continue to monitor, monitor Cr s/p discharge given cath 4. Hypertension. Chronic, continue ARB, continue beta-radha Diet. Reg, NPO in a.m. Prophylaxis. High risk patient, Eliquis 5 twice daily Code. Full Disposition. Anticipated discharge is uncertain, abnl resting test images today and requiring cath Subjective: patient w/ intermittent twinges of chest pain, currently chest pain free Objective: Vital Signs Temp Pulse Resp BP Pulse Ox 36.6 C 64 15 121/73 H 98 09/26/17 16:00 09/26/17 16:00 09/26/17 16:00 09/26/17 16:00 09/26/17 16:00 09/25/17 09/26/17 09/27/17 05:59 05:59 05:59 Intake Total 150 650 Balance 150 650 - Time Spent With Patient Time Spent with Patient: greater than 35 minutes Time Spent with Patient: Greater than 35 minutes spent on this patients care, greater than 50% of time spent counseling, educating, and coordinating care regarding the above mentioned plan. - Physical Exam Constitutional: no apparent distress, not in pain, obese, No uncomfortable Cardiovascular: regular rate and rhythym, no murmur, rub, or gallop, No edema Respiratory: no respiratory distress, no rales or rhonchi, clear to auscultation Neurologic: AAOx3 Psychiatric: interacting appropriately, not anxious, not encephalopathic, thought process linear ICD10 Worksheet Patient Problems: Problems Problem Status Onset Chest pain Acute HTN (hypertension) Acute Hyperlipidemia Acute Shortness of breath Acute Fatigue Acute Acute coronary syndrome Acute
[2017-09-26] MEDS ORDERED: LATANOPROST 0.005% 2.5 ML OPHT DROPS LEFTEYE SCH (21:00)
[2017-09-27 04:16] LABS: PLATELET COUNT 175 10^3/uL (150-400)
[2017-09-27 04:24] LABS: INR 1.06 (0.83-1.16)
--- NOTE | 2017-09-27 08:06 | PDCARPN ---
Cardiology Progress Note Chief Complaint: Patient with ongoing, intermittent chest discomfort as well as mild dyspnea Assessment/Plan: Assessment: 09-27-17 Patient notes ongoing chest discomfort from admission, but no changes in character or severity. He notes occasional dyspnea, which resolves spontaneously within minutes. No complaints of orthopnea or ankle swelling. He continues to express anxiety regarding upcoming angioplasty (to be expected). Overall, patient appears to being doing fairly well today and was pleasant upon interaction. 09-26-17 No cardiovascular complaints were voiced today. Stress testing (stress images) yesterday with abnormal perfusion, and rest images were obtained today. Preliminary read with inferior infarction pattern noted with periinfarct ischaemia noted. Given a lack of CV history, this is of concern. I did discuss with the patient today, given an abnormal finding on a patient without prior history, angiography would be indicated, especially given the symptoms being noted. No active cardiovascular symptoms were noted today. Anxiety levels were elevated post discussion about the stress testing and possible angiography (to be expected). 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 Discomfort began about one day prior to ER. Left sided location. No radiation of the discomfort into shoulder, neck, or jaw. No PND or orthopnea. No fevers or chills. No symptoms similar in recent past, but in remote past (>5 years ago), patient feels that there were similar symptoms, and he was seen by [facility] in April 2014. Stress testing in 2013 without ischaemia or infarction patterns noted. Normal LVEF by echo (2013 ) and MPI (2013). Blood pressure elevation was also a concern to the patient about four to five days prior to admission with pressures that were noted to be >150 mm Hg. Patient is followed by nephrology on regular basis (Q6 months) for chronic renal insufficiency history. Plan: (1) Angiography today (2) Pre medication for Iodine allergy (3) ASA should continue for life (4) Metoprolol and Cozaar should continue for HTN (5) Statins for HLP (6) Further recommendations after testing has been completed Subjective: Ongoing, intermittent chest discomfort noted Objective: Vital Signs (8 Hrs) Temp Pulse Resp BP Pulse Ox 09/27/17 04:00 36.6 C 70 12 158/92 H 99 Intake/Output (24 Hrs) 09/26/17 09/27/17 09/28/17 05:59 05:59 05:59 Intake Total 150 650 Balance 150 650 Intake: Oral (ml) 150 650 Other: Intake Quantity Yes Sufficient Number of Voids Toilet 3 Number of Stools Toilet 1 Result Diagrams: 09/27/17 03:25 09/27/17 03:25 Cardiac Labs: Cardiac Lab Results (72 Hrs) 09/26/17 09/25/17 03:30 18:25 Troponin I 0.021 0.016 Telemetry: normal sinus rhythm - Physical Exam Constitutional: WDWN, healthy appearing, no apparent distress Eyes: PERRL, EOMI Ears, Nose, Mouth, Throat: moist mucous membranes Cardiovascular: regular rate and rhythm, pulses symmetric bilat, No jugular vein distention Peripheral Pulses: 2+: dorsalis-pedis (R), dorsalis-pedis (L) Respiratory: clear to auscultate bilat Gastrointestinal: normoactive bowel sounds Skin: no edema Musculoskeletal: no muscular tenderness Neurologic: AAOx3, CN II-XII grossly intact Psychiatric: cooperative, interactive, following commands ICD10 Worksheet Patient Problems: Problems Problem Status Onset Acute coronary syndrome Acute Chest pain Acute Fatigue Acute Shortness of breath Acute HTN (hypertension) Acute Hyperlipidemia Acute
[2017-09-27] MEDS: DOXAZOSIN MESYLATE 4 MG TAB PO SCH (08:40)
[2017-09-27] MEDS: LOSARTAN POTASSIUM 50 MG TAB PO SCH (08:40)
[2017-09-27] MEDS: ALLOPURINOL 100 MG TAB PO SCH (08:40)
[2017-09-27] MEDS: PANTOPRAZOLE SODIUM 40 MG TAB PO SCH (08:40)
[2017-09-27] MEDS: ATORVASTATIN CALCIUM 40 MG TAB PO SCH (08:40)
[2017-09-27] MEDS: ASPIRIN EC 325 MG TAB PO SCH (08:40)
[2017-09-27] MEDS: METOPROLOL TARTRATE 25 MG TAB PO SCH (08:41)
[2017-09-27] MEDS: DOCUSATE SODIUM 100 MG CAP PO SCH (08:41)
[2017-09-27] MEDS: FINASTERIDE 5 MG TAB PO SCH (08:41)
--- NOTE | 2017-09-27 09:37 | CPEKG ---
Heart Rate: 69 RR Interval: 870 P-R Interval: 196 QRSD Interval: 72 QT Interval: 380 QTC Interval: 407 P Greenwood: 31 QRS Greenwood: -9 T Wave Greenwood: 27 EKG Severity - NORMAL ECG - EKG Impression: SINUS RHYTHM Electronically Signed By: Ray Garrett 29-Sep-2017 07:25:30
--- NOTE | 2017-09-27 10:44 | PDPROPOC ---
Sedation Plan of Care Sedation Plan of Care: vital signs stable, mental status noted, patient educated of risks, benefits, alternatives, patient can tolerate sedation ASA Classification: ASA 2 Planned drugs: fentanyl, midazolam Mallampati Score: Class 1 Mallampati Reference Image: Patient passed 3-3-2 rule?: Yes
[2017-09-27] MEDS ORDERED: DIAZEPAM 5 MG/ML 1 ML SYR IVP ONE (11:18)
[2017-09-27] MEDS ORDERED: NS 1,000 ML IV SCH (11:30)
[2017-09-27] MEDS ORDERED: methylPREDNISolone SOD SUCC 125 MG/2 ML VIAL IVP ONE (12:00)
[2017-09-27] MEDS ORDERED: FAMOTIDINE 20 MG/2 ML SDV IVP ONE (12:00)
[2017-09-27] MEDS ORDERED: FAMOTIDINE 20 MG/NACL/50 ML BAG IV ONE (12:31)
[2017-09-27] MEDS ORDERED: LIDOCAINE 1% 300 MG/30 ML SDV ONE (12:36)
[2017-09-27] MEDS ORDERED: fentaNYL 100 MCG/2 ML INJ ONE (12:37)
[2017-09-27] MEDS ORDERED: IOPAMIDOL (ISOVUE-370) 150 ML BTL IV ONE (12:37)
[2017-09-27] MEDS ORDERED: MIDAZOLAM 2 MG/2 ML VIAL ONE (12:37)
[2017-09-27] MEDS ORDERED: METOPROLOL TARTRATE 5 MG/5 ML INJ ONE (13:05)
[2017-09-27] MEDS ORDERED: ATROPINE SULFATE 1 MG/10 ML SYR IVP PRN (15:03)
[2017-09-27] MEDS ORDERED: ISOSORBIDE MONONITRATE 30 MG TAB.SR PO SCH (15:15)
--- NOTE | 2017-09-27 15:32 | PDDXCAT ---
Diagnostic Cath Note - . Date: 09/27/17 [employer] Room Attendant: Gerry Indication: CCC Class III and IV angina on medical treatment High-risk criteria on non-invasive testing: stress-induced moderate-size multiple perfusion defects - Procedure Access: right groin Procedure: left heart catheterization, coronary angiography, left ventriculogram (no ventriculogram was performed (but pressures were monitored) to minimize contrast load) - Materials Left Heart Cath size: 6F Left Heart Cath materials: standard multipack (JL4, JR4, pigtail) - Findings-Left Heart Catheterization LM: Short, bifurcating into the LAD and LCX. No luminal irregularities were noted LAD: Medium diameter vessel with two principal diagonals. Diffuse, non critical CAD was noted (no more than 10-20%) from proximal to distal vessel LCX: Medium diamter vessel with early, principal OM1. Mid to distal LCX was rather small and diminuative. In proximal OM1, there was a 30% haziness noted. Branch vessels were noted in the proximal portion of the OM1 without appreciable CAD noted. RCA: Medium diameter vessel with supply to the PDA (dominant vessel). Diffuse disease (up to 20%) was noted throughout the RCA system. EDP: 24 mm Hg LVEF: Not assessed given desire to minimize contrast load Wall motion: not assessed Complications: none Estimated blood loss: <50ml Closure method: Angioseal Assessment: Patient is a 77 y/o male with HTN (in need of further, more aggressive control), HLP, pAF with CVA history (on NOAC therapy) without critical CAD noted by angiography. No assessment of LVEF was performed. Abnormal stress findings likely secondary to diaphragmatic/gut attenuation. Plan: Recommendations for patient to follow up with nephrology given history of "progressive renal insufficiency" and the elevation in blood pressures that has been noted. Would continue with aggressive HTN therapy (Lopressor and Cozaar). Would consider uptitration of Lopressor and the addition of Imdur for the noted pressure elevations. Would continue therapy on statins. Would arrange for patient to be seen in the outpatient setting by cardiology ( post angiography follow up). Intervention: none Patient Problems: Problems Problem Status Onset Acute coronary syndrome Acute Chest pain Acute Fatigue Acute Shortness of breath Acute HTN (hypertension) Acute Hyperlipidemia Acute
--- NOTE | 2017-09-27 16:09 | ASMTDCNOTE ---
Case Management Discharge Discharge Order Complete? Answers: Yes Patient to Obtain Answers: via Family Medications Transportation Arranged Answers: Family/Friends EMTALA Complete Answers: No Case Management Transport Answers: No Form Complete Faxed Final Orders Answers: No Family Notified Answers: No Discharge Comments Notes: Pts case discussed in tx rounds. Pt had a cath today. Pt is being discharged today. Pt has been observed ambulating around independently. RN reports that pt will not have any needs. No therapies ordered at this time. CM available for changes. Plan: Independent Date Signed: 09/27/2017 04:09 PM Electronically Signed By:RAMÍREZ Barajas
--- NOTE | 2017-09-27 16:10 | ASMTLACE ---
LACE Length of stay for Answers: 3 days current admission Acuity / Level of Answers: Yes Care: Did the patient have an inpatient admission? Comorbidities - select Answers: Any tumor (including all that apply lymphoma or leukemia) Cerebrovascular disease (CVA, TIA, aneurysms, vasc ular dementia) Moderate or severe liver or renal disease Other Notes: hydrocele, nephrectomy sec to trauma, HTN, HLD # of Emergency department Answers: 1-2 visits in the last 6 months Score: 15 Date Signed: 09/27/2017 04:09 PM Electronically Signed By:RAMÍREZ Barajas
--- NOTE | 2017-09-27 17:00 | PDDCSUM ---
Discharge Summary Discharge Summary: DISCHARGE SUMMARY FOLLOW-UP ITEMS: Repeat creatinine BUN and lytes on 09/30 with results to be followed by Dr. Thakur DATE OF ADMISSION: 09/24/2017 DATE OF DISCHARGE: 09/27/2017 DISCHARGE DIAGNOSES: 1. Acute chest pain 2. Nonobstructive coronary artery disease 3. Chronic hypertension 4. Chronic kidney disease stage 3 5. Paroxysmal atrial fibrillation CONSULTATIONS: Cardiology PROCEDURES / IMAGING: Nuclear medicine stress test demonstrating inferolateral infarct and possible brenda-infarct ischemia Echocardiogram demonstrating ejection fraction 55% with [id number] aortic insufficiency, mild mitral regurgitation CHIEF COMPLAINT: Acute chest pain SUBJECTIVE: Patient is feeling well at time of discharge, he is not currently having a chest pain PHYSICAL EXAM ON DISCHARGE: Systolic blood pressure is 120-150, heart rate 70 80, afebrile overnight, satting on room air, alert awake oriented x3, fatigued, obese LABS ON DISCHARGE: Creatinine 1.6, D-dimer negative hemoglobin 15.6, LDL 34 HOSPITAL COURSE BY PROBLEM: The patient presented with acute chest pain was ruled out for acute coronary syndrome with negative troponin, no ischemic changes on EKG, and was ruled out for obstructive coronary disease with a cardiac catheterization demonstrating only mild stenosis in the left circumflex but no evidence of large vessel obstruction. He was ruled out for pulmonary embolism with a negative D-dimer and the exact cause of his chest pain was considered atypical, but possibly secondary to either reflux or musculoskeletal cause. The patient required inpatient admission given his high risk status for obstructive coronary disease and an abnormal nuclear medicine stress test which demonstrated inferolateral infarct and possible ischemia, which ended up being a false-positive test, as proven by his cardiac catheterization. Consequently, we recommended conservative treatment of his likely musculoskeletal pain, which was reproducible on exam, and included heat pad, ice, icy Hot, as needed Tylenol. We also recommended empiric treatment for possible reflux with proton pump inhibitor, given the patient and his have recently been consuming a significant amount of rich food, as they on 2 local restaurants and have been dining out regularly, which could be resulting in reflux. The patient does have suboptimally controlled hypertension, and in the setting of his chronic kidney disease stage 3, a blood pressure target of less than 130 is recommended. Given that the patient may have a small vessel coronary disease which is non-intervenable with catheterization, and his systolic blood pressure has been regularly above 140, Dr. Garrett and I have recommended initiation of isosorbide mononitrate 30 mg daily, with outpatient blood pressure check by his primary jacker Dr. Thakur later this week. We also recommend checking his creatinine BUN and lytes later this week prior to that appointment, given that the patient has received IV contrast for his cardiac catheterization. We also recommended initiating low-dose beta-radha given his presence of coronary disease, notably metoprolol tartrate 12.5 mg twice daily. His other home medications were continued, including an ARB. DISCHARGE MEDICATIONS: Please see official discharge medication reconciliation sheet in chart , continue home medications with the addition of metoprolol tartrate 12.5 mg twice daily, isosorbide mononitrate 30 mg daily, as needed Tylenol, as needed icy Hot. DISCHARGE INSTRUCTIONS: Please follow up with Dr. Thakur later this week after having labs drawn. TIME SPENT: Greater than 30 minutes were spent on direct patient care, as well as discharge planning and preparation.
[2017-09-27 17:28] VITALS: BP 118/81
== END 2017-09-27 18:02 | disposition home or self-care (01) | DRG 287 ==
LOC: F2W 17:14 → OBSVTOIN 09-25 16:41
PROVIDERS: ADMIT Hospitalist; ATTEND Hospitalist
DX: R07.89 Other chest pain (principal); I25.10 Atherosclerotic heart disease of native coronary artery without angina pectoris; I12.9 Hypertensive chronic kidney disease with stage 1 through stage 4 chronic kidney disease, or unspecified chronic kidney disease; N18.3 Chronic kidney disease, stage 3 (moderate); I48.0 Paroxysmal atrial fibrillation; I08.0 Rheumatic disorders of both mitral and aortic valves; E78.5 Hyperlipidemia, unspecified; N40.0 Benign prostatic hyperplasia without lower urinary tract symptoms; Z79.01 Long term (current) use of anticoagulants; Z87.891 Personal history of nicotine dependence; Z90.5 Acquired absence of kidney; Z86.73 Personal history of transient ischemic attack (TIA), and cerebral infarction without residual deficits; Z85.038 Personal history of other malignant neoplasm of large intestine; Z87.442 Personal history of urinary calculi
CPT/HCPCS: 84484-PO; A9500; C1760; G0378; J1200; J1644; J2250; J2785; J2930; J3010; J3360; Q9967

== ENCOUNTER 2018-04-01 17:19 | Emergency (ER) | payer OTHER ==
--- NOTE | 2018-04-01 17:53 | EDPHY ---
H & P Stated Complaint: SOB--direct support staff sent for xray results-"fluid overload" Time Seen by Provider: 04/01/18 17:32 - Medical/Surgical History Hx Asthma: No Hx Chronic Respiratory Disease: No Hx Diabetes: No Hx Cardiac Disease: Yes Hx Renal Disease: Yes Hx Cirrhosis: No Hx Alcoholism: No Hx HIV/AIDS: No Hx Splenectomy or Spleen Trauma: No Other PMH: AFIb w/ cardioversion, left kidney nephrectomy; wears oxygen at night , CVA, HTN, BPH, kidney stones, colon CA - Social History Smoking Status: Former smoker Constitutional: Initial Vital Signs Temperature (C) 36.5 C 04/01/18 17:24 Heart Rate 65 04/01/18 17:24 Respiratory Rate 20 04/01/18 17:24 Blood Pressure 123/82 H 04/01/18 17:24 O2 Sat (%) 95 04/01/18 17:24 O2 Delivery Mode Room Air Allergies/Adverse Reactions: iodine [Iodine] Allergy (Severe, Verified 03/28/10 01:32) Anaphylaxis IVP dye Allergy (Uncoded 01/20/14 19:12) Home Medications: Medication Instructions Recorded Docusate Sodium [Colace 100 MG (*)] 100 mg PO DAILY 03/27/10 Allopurinol [Allopurinol 100 MG 100 mg PO DAILY 01/20/14 (*)] Atorvastatin Calcium [Lipitor 80 80 mg PO DAILY 01/20/14 mg] Doxazosin Mesylate [Cardura] 2 mg PO DAILY 01/20/14 Latanoprost 0.005% [Xalatan 0.005% 1 drops LEFTEYE HS 01/20/14 (*)] Tamsulosin HCl [Flomax 0.4 MG (*)] 0.4 mg PO DAILY 01/20/14 Apixaban [Eliquis] 5 mg PO BID 09/24/17 Finasteride [Proscar 5 MG (*)] 5 mg PO DAILY 09/24/17 Losartan Potassium [Cozaar 50 mg 50 mg PO DAILY 09/24/17 (*)] ZOLPIDEM TARTRATE [Ambien CR 12.5 12.5 mg PO HS PRN 09/24/17 mg] Acetaminophen [Tylenol 325mg (*)] 650 mg PO QID PRN tab 09/27/17 Isosorbide Mononitrate [Imdur 30 30 mg PO DAILY #30 tab.sr 09/27/17 mg (*)] Metoprolol Tartrate [Lopressor 25 12.5 mg PO BID #30 tab 09/27/17 mg (*)] Pantoprazole Sodium [Protonix 40mg 40 mg PO DAILY #30 tab 09/27/17 (*)] Furosemide [Lasix 20 MG (*)] 20 mg PO DAILY06 #7 tab 04/01/18 Medical Decision Making - Diagnostics Imaging Results: Imaging Impressions Chest X-Ray 04/01/18 16:07 Impression: Borderline CHF/fluid overload. Imaging: I viewed and interpreted images myself ED Course/Re-evaluation: CHIEF COMPLAINT: Difficulty breathing, atrial fibrillation HISTORY OF PRESENT ILLNESS: The patient is an anticoagulated (Eliquis) 78 y/o male with a history of A-fib requiring a cardioversion, left nephrectomy, CVA, hypertension complaining of shortness of breath. Around 4 to 5 days ago he started taking Flecainide as the cardioversion did not work. However, he started feeling worse and was advised not to take it this morning. He started to have decrease urine output and has felt short of breath while lying flat or moving around. Since stopping the Flecainide his exertional dyspnea has improved mildly. Taking a deep breath causes dizziness. No fever, chest pain, abdominal pain, bowel complaints, numbness. REVIEW OF SYSTEMS: A 10 point review of systems was performed and is negative with the exception of the elements mentioned in the history of present illness. PHYSICAL EXAM: HR, BP, O2 Sat, RR. Temp noted General Appearance: Alert, well hydrated, appropriate, and non-toxic appearing. Head: Atraumatic without scalp tenderness or obvious injury Eyes: Pupils equal, round, reactive to light and accommodation, EOMI, no trauma , no injection. Ears: Clear bilaterally, no perforation, normal landmarks Nose: Atraumatic, no rhinorrhea, clear. Throat: There is no erythema or exudates, no lesions, normal tonsils, mucus membranes moist. Neck: Supple, 2+ carotid upstroke, nontender, no lymphadenopathy. Respiratory: Few rales in the bases, occasional cough, moving air well. No retractions, no distress, no wheezes, and no accessory muscle use. Cardiovascular: Regular rate and rhythm, no murmurs, rubs, or gallops. Bilateral carotid, radial, dorsalis pedis, and posterior tibial pulses intact. Good capillary refill all extremities. Gastrointestinal: Abdomen is soft, nontender, non-distended, no masses, no rebound, no guarding, no peritoneal signs. Musculoskeletal: Normal active ROM of all extremities, atraumatic. Neurological: Alert, appropriate, and interactive. The patient has normal DTRs and non-focal cranial nerves, motor, sensory, and cerebellar exam. Skin: No rashes, good turgor, no nodules on palpation. Past medical history: AFIb w/ cardioversion, wears oxygen at night, CVA, hypertension, BPH, kidney stones, colon CA Past surgical history: left kidney nephrectomy Family history: Denies Social history: at bedside, lives in [place], retired DIAGNOSTICS/PROCEDURES/CRITICAL CARE TIME: Chest x-ray: Borderline CHF/fluid overload EKG: The 12 lead EKG was interpreted by myself as rate-controlled atrial fibrillation with a rate of 69. See hard copy and/or "tracemaster" electronic copy for interpretation. DIFFERENTIAL DIAGNOSIS: The differential diagnosis for the patient's shortness of breath and hypoxemia included but was not limited to pneumonia, myocardial infarction, acute mountain sickness, high altitude pulmonary edema, congestive heart failure, and pulmonary embolus. MEDICAL DECISION MAKING: The patient is an anticoagulated (Eliquis) 78 y/o male with a history of A-fib requiring a cardioversion, left nephrectomy, CVA, hypertension complaining of shortness of breath after starting Flecainide. He primarily has dyspnea while lying flat or exerting himself. On exam he has a few rales in the bases and an occasional cough. He is moving air well and maintain's his O2Sats around 97% on room air. Labs, EKG, and chest x-ray ordered. 174: I reviewed patient's EKG as rate-controlled atrial fibrillation with a rate of 69. 1750: I reviewed patient's chest x-ray which reveals a fluid overload. 175: Reassessed patient and discussed EKG and x-ray findings; labs still pending. 1841: Patient's labs reveal a BNP of 4,670 and a negative troponin. We will need to figure out how to diurese him safely since he has renal insufficiency. 185: I consulted with Dr. Latanya Vázquez, sanitary plumber, regarding this patient. 40mg IV Lasix administered. 2007: Patient urinated 400mL but is still having exertional dyspnea. We will see if he is still having difficulty while lying flat. 2014: Reassessed patient he continues to feel better and is having less work of breathing. I offered him admission; which he declined. I have prescribed him Lasix for fluid retention. I have advised him to follow up with Dr. Thakur. Return precautions provided; patient is comfortable with this plan. - Data Points Laboratory Results: Laboratory Results 04/01/18 17:45 04/01/18 17:45 04/01/18 04/01/18 04/01/18 17:55 17:45 17:45 WBC 9.46 10^3/uL 10^3/uL (3.80-9.50) RBC 5.33 10^6/uL 10^6/uL (4.40-6.38) Hgb 15.9 g/dL g/dL (13.7-17.5) Hct 47.5 % % (40.0-51.0) MCV 89.1 fL fL (81.5-99.8) MCH 29.8 pg pg (27.9-34.1) MCHC 33.5 g/dL g/dL (32.4-36.7) RDW 13.7 % % (11.5-15.2) Plt Count 188 10^3/uL 10^3/uL (150-400) MPV 11.3 fL fL (8.7-11.7) Neut % (Auto) 76.5 % H % (39.3-74.2) Lymph % (Auto) 11.4 % L % (15.0-45.0) Crenshaw % (Auto) 9.0 % % (4.5-13.0) Eos % (Auto) 2.2 % % (0.6-7.6) Baso % (Auto) 0.4 % % (0.3-1.7) Nucleat RBC Rel Count 0.0 % % (0.0-0.2) Absolute Neuts (auto) 7.23 10^3/uL H 10^3/uL (1.70-6.50) Absolute Lymphs (auto) 1.08 10^3/uL 10^3/uL (1.00-3.00) Absolute Monos (auto) 0.85 10^3/uL H 10^3/uL (0.30-0.80) Absolute Eos (auto) 0.21 10^3/uL 10^3/uL (0.03-0.40) Absolute Basos (auto) 0.04 10^3/uL 10^3/uL (0.02-0.10) Absolute Nucleated RBC 0.00 10^3/uL 10^3/uL (0-0.01) Immature Gran % 0.5 % % (0.0-1.1) Immature Gran # 0.05 10^3/uL 10^3/uL (0.00-0.10) Sodium 138 mEq/L mEq/L (135-145) Potassium 4.5 mEq/L mEq/L (3.5-5.2) Chloride 107 mEq/L mEq/L (97-110) Carbon Dioxide 25 mEq/l mEq/l (22-31) Anion Gap 6 mEq/L mEq/L (6-14) BUN 29 mg/dL H mg/dL (7-23) Creatinine 1.8 mg/dL H mg/dL (0.7-1.3) Estimated GFR 37 Glucose 105 mg/dL H mg/dL (70-100) Calcium 9.1 mg/dL mg/dL (8.5-10.4) Magnesium 2.1 mg/dL mg/dL (1.6-2.3) POC Troponin I 0.01 ng/mL ng/mL (0.00-0.08) NT-Pro-B Natriuret Pep 4670 pg/mL H pg/mL (0-450) Medications Given: Discontinued Medications Furosemide (Lasix Injection) 40 mg IVP EDNOW ONE Stop: 04/01/18 18:58 Last Admin: 04/01/18 19:18 Dose: 40 mg Point of Care Test Results: Chemistry 04/01/18 17:55 POC Troponin I 0.01 ng/mL ng/mL (0.00-0.08) Departure - Departure Disposition: Home, Routine, Self-Care Clinical Impression: Shortness of breath, Renal insufficiency Condition: Good Instructions: Shortness of Breath (ED) Additional Instructions: 1. Take Lasix as prescribed. Do not drink excessive amounts of water. 2. Follow-up with your primary doctor and Dr. Thakur within 72 hours. 3. Return to the Emergency Department for fever, chest pain, shortness of breath , increasing pain or other worsening of condition. Referrals: Melani Feliz MD [Primary Care Provider] - As per Instructions Dipak Thakur MD [Medical Doctor] - As per Instructions Prescriptions: Furosemide [Lasix 20 MG (*)] 20 mg PO DAILY06 #7 tab Report Scribed for: Ward Somers Report Scribed by: Shirley Simon Date of Report: 04/01/18 Time of Report: 18:12
[2018-04-01 18:14] LABS: PLATELET COUNT 188 10^3/uL (150-400)
[2018-04-01] MEDS ORDERED: FUROSEMIDE 40 MG/4 ML VIAL IVP ONE (18:57)
[2018-04-01 20:39] VITALS: BP 127/70
--- NOTE | 2018-04-01 22:44 | CPEKG ---
Test Reason : OPEN Blood Pressure : / mmHG Vent. Rate : 069 BPM Atrial Rate : 000 BPM P-R Int : 074 ms QRS Dur : 084 ms QT Int : 416 ms P-R-T Axes : 000 -02 059 degrees QTc Int : 446 ms Atrial fibrillation Low voltage, extremity and precordial leads Confirmed by Ward Somers ([id number]) on 04/01/2018 10:44:42 PM Referred By: Confirmed By:Ward Somers
== END 2018-04-01 20:40 | disposition home or self-care (01) ==
LOC: EDSTATUS 17:19 → SUPCPDRO 17:19
DX: R06.02 Shortness of breath (principal); N28.9 Disorder of kidney and ureter, unspecified; I48.91 Unspecified atrial fibrillation
CPT/HCPCS: 71046; 93005; 96374; 99285; J1940; 84484-PO